=== PATIENT | female | born 1945 | race African-American/Black ===

== ENCOUNTER 2018-11-08 09:55 | Emergency (ER) | payer OTHER ==
[~2018-11-08] VITALS: Ht 152.4 cm; Wt 48.5 kg
[~2018-11-08 09:55] MED LIST: CALCIUM 500 +1 EAC5 PO; FISH OIL 1,0001 EAC5 PO; HYDROCHLOROTHIA25 M1 PO; MIRALAX255 GM PO; MULTIVITAMINS1 EAC7 PO; PEPCID40 MG PO; ZOCOR 20 MG TAB20 M1 PO; ZOFRAN 4 MG ORAL4 MG PO; ZOFRAN ODT4 MG PO
[2018-11-08] MEDS ORDERED: AMLODIPINE BESY10 MG PO (10:07)
[2018-11-08] MEDS ORDERED: MOBIC7.5 MG PO (11:20)
[2018-11-08 11:41] VITALS: BP 140/74
== END 2018-11-08 11:55 | disposition home or self-care (01) ==
LOC: ER 09:55
DX: S86.812A Strain of other muscle(s) and tendon(s) at lower leg level, left leg, initial encounter (principal); I10 Essential (primary) hypertension; X50.1XXA Overexertion from prolonged static or awkward postures, initial encounter; Y92.22 Religious institution as the place of occurrence of the external cause; Y93.89 Activity, other specified; Y99.8 Other external cause status

== ENCOUNTER 2018-11-11 21:04 | Emergency (ER) | payer OTHER ==
[~2018-11-11] VITALS: Ht 152.4 cm; Wt 48.5 kg
[~2018-11-11 21:04] MED LIST changes: +AMLODIPINE BESY10 MG PO; +MOBIC7.5 MG PO
[2018-11-11 23:01] LABS: HEMATOCRIT 42.3 % (37.0-47.0); HEMOGLOBIN 14.5 gm/dL (12.0-15.0); MCH 30.1 pg (26.0-34.0); MCHC 34.4 g/dL (28.0-37.0); MCV 87.4 fL (80.0-100.0); PLATELET COUNT 235 thou/uL (150-400); RBC 4.84 mil/uL (4.20-5.00); RDW 13.6 % (10.5-14.5); WBC 4.5 thou/uL (4.0-11.0)
[2018-11-11 23:30] LABS: ANION GAP 8 mmol/L (7-16); BUN 14 mg/dL (7-18); CALCIUM 9.7 mg/dL (8.5-10.1); CHLORIDE 102 mmol/L (98-107); CO2 29 mmol/L (21-32); CREATININE 0.7 mg/dL (0.6-1.0); GLUCOSE 122 mg/dL (74-106); POTASSIUM 3.9 mmol/L (3.5-5.1); SODIUM 139 mmol/L (136-145)
[2018-11-11 23:39] LABS: TROPONIN-I <0.06 ng/mL (<0.06)
[2018-11-11 23:51] LABS: ABSOLUTE NEUTROPHILS 2.6 thou/uL (1.4-8.2)
[2018-11-12 00:30] VITALS: BP 153/69
--- NOTE | 2018-11-12 19:58 | EKG ---
[place] [address] [facility] [place] [address] ELECTROCARDIOGRAM REPORT Name: SOURAV EDMONDSON Room #: [facility]#: [id number] ������������������ Admission: 11/11/18 ������������������ Attend Phys: Discharge: 11/12/18 ������������������ Date of : 45 Report #: [id number] ����������������������������������������������������������������� [id number] THIS REPORT FOR: //name// [facility] ED Test Date: 2018-11-11 Test Time: 22:08:57 Pat Name: SOURAV EDMONDSON Department: Room: Gender: F [employer] Sales Representative: : 1945 Requested By: Lan Prieto Order Number: [id number] MD: Luke Hoang Measurements Intervals [place] Rate: 78 P: 64 ND: 149 QRS: 26 QRSD: 88 T: 59 QT: 394 QTc: 449 Interpretive Statements Sinus rhythm Borderline T abnormalities, anterior leads Compared to ECG 08/20/2014 22:56:55 Sinus arrhythmia no longer present T-wave abnormality still present Electronically Signed On 11-12-2018 19:57:52 [employer] by Luke Hoang [email or web address] ��������������������������������������������� <ELECTRONICALLY SIGNED> ���������������������������������������� By: Luke Hoang MD ��������������������������������������������� 11/12/181956 2208 07 Luke Hoang MD /EPI
== END 2018-11-12 00:36 | disposition home or self-care (01) ==
LOC: ER 21:04
PROVIDERS: Emergency Medicine
DX: R07.89 Other chest pain (principal); I10 Essential (primary) hypertension

== ENCOUNTER 2020-10-04 14:20 | Emergency (ER) | payer OTHER ==
[~2020-10-04] VITALS: Ht 157.5 cm; Wt 46.3 kg
[2020-10-04 16:32] LABS: URINE BILIRUBIN NEGATIVE (Negative); URINE BLOOD NEGATIVE (Negative); URINE CLARITY CLEAR; URINE COLOR YELLOW; URINE GLUCOSE-RANDOM* NEGATIVE (Negative); URINE KETONES NEGATIVE (Negative); URINE NITRITE-REFLEX NEGATIVE (Negative); URINE PROTEIN (DIPSTICK) NEGATIVE (Negative); URINE UROBILINOGEN 0.2 E.U./dl (0.2-1.0)
[2020-10-04 16:33] LABS: URINE LEUKOCYTES-REFLEX 1+ (Negative)
[2020-10-04 16:46] LABS: BACTERIA-REFLEX None Seen /HPF (None Seen); CASTS None Seen /LPF (None Seen); CRYSTALS None Seen /LPF (None Seen); SQUAMOUS 0-3 Few /LPF (0-3); URINE RBC 0-2 Rare /HPF (0-2); URINE WBC-REFLEX 0-5 Rare /HPF (0-5)
[2020-10-04 16:51] LABS: ABSOLUTE NEUTROPHILS 3.1 thou/uL (1.4-8.2); BASOPHILS 0.6 % (0.0-2.0); EOSINOPHILS 0.1 % (0.0-3.0); HEMATOCRIT 41.9 % (37.0-47.0); HEMOGLOBIN 13.6 gm/dL (12.0-15.0); LYMPHOCYTES 22.9 % (24.0-44.0); MCH 28.7 pg (26.0-34.0); MCHC 32.4 g/dL (28.0-37.0); MCV 88.7 fL (80.0-100.0); MONOCYTES 10.1 % (1.0-8.0); PLATELET COUNT 279 thou/uL (150-400); POLYS 66.3 % (36.0-66.0); RBC 4.72 mil/uL (4.20-5.00); RDW 14.4 % (10.5-14.5); WBC 4.7 thou/uL (4.0-11.0)
[2020-10-04 17:00] LABS: ANION GAP 6 mmol/L (7-16); BUN 14 mg/dL (7-18); CALCIUM 9.9 mg/dL (8.5-10.1); CHLORIDE 102 mmol/L (98-107); CO2 29 mmol/L (21-32); CREATININE 0.8 mg/dL (0.6-1.0); GLUCOSE 100 mg/dL (74-106); POTASSIUM 3.9 mmol/L (3.5-5.1); SODIUM 137 mmol/L (136-145)
[2020-10-04 17:10] LABS: ALBUMIN 3.7 g/dL (3.4-5.0); SGOT 28 U/L (15-37); SGPT 30 U/L (14-59); TOTAL BILIRUBIN 0.3 mg/dL (0.2-1.0); TOTAL PROTEIN 7.7 g/dL (6.4-8.2); TROPONIN-I <0.06 ng/mL (<0.06)
[2020-10-04 18:00] VITALS: BP 141/71
--- NOTE | 2020-10-05 10:17 | EKG ---
[place] [address] [facility] [place] [address] ELECTROCARDIOGRAM REPORT Name: SOURAV EDMONDSON Room #: [facility]#: [id number] Admission: 10/04/20 Attend Phys: Discharge: 10/04/20 Date of : 45 Report #: [id number] [facility] ED Test Date: 2020-10-04 Test Time: 14:32:30 Pat Name: SOURAV EDMONDSON Department: Room: Gender: F Health And Safety Tech: RENETTA : 1945 Requested By: Facundo Wells Order Number: [id number] MD: Randy Foy Measurements Intervals [place] Rate: 93 P: 63 ID: 143 QRS: -18 QRSD: 94 T: 48 QT: 357 QTc: 445 Interpretive Statements Sinus rhythm Left atrial enlargement Borderline left axis deviation Nonspecific T abnormalities, anterior leads Baseline wander in lead(s) II Compared to ECG 11/11/2018 22:08:57 Electronically Signed On 10-05-2020 10:16:46 [employer] by Randy Foy [email or web address] <ELECTRONICALLY SIGNED> By: Randy Foy MD 10/05/20 1016 [id number] 143 Randy Foy MD /CHRIS
== END 2020-10-04 18:00 | disposition home or self-care (01) ==
LOC: ER 14:20
PROVIDERS: Emergency Medicine
DX: I10 Essential (primary) hypertension (principal); Z79.899 Other long term (current) drug therapy